=== PATIENT | female | born 1990 | race Caucasian/White ===

== ENCOUNTER 2017-10-09 14:02 | Emergency (ER) | payer MEDICAID ==
[~2017-10-09] VITALS: Ht 170.2 cm; Wt 71.2 kg
[~2017-10-09 14:02] MED LIST: BENADRYL25 M1 PO; CEPHALEXIN500 MG PO; KEFLEX 500MG.500 MG PO; MEDROL 4MG. DOSE4 MG PO; MOTRIN400 MG PO; NOMEDS *; PERCOCET 5/3251 EACH PO; PHENERGAN 25MG.25 MG PR; PROZAC 20MG CAP20 MG PO; ROBITUSSIN PO; SEPTRA DS 800 M1 TAB PO; SULFAMETHOXAZOL1 TA6 PO; TRAMADOL 50MG T50 M1 PO; TRAZODONE 50MG50 MG PO; VIBRAMYCIN 100100 MG PO; VICODIN 5/500 T1 TAB PO; ZANTAC 300300 MG PO; ZITHROMAX Z PA250 MG PO
--- OUTSIDE RECORDS SUMMARY | 2017-10-09 14:09 | External Medical Summary Rpt | CCD ---
Author Author , EUGENIA BELLO Address Unknown Phone [email or web address] Care Team Providers Care Vocational Examiner Name Role Phone LILIA ONEIDA, LILIA Unavailable Unavailable ONEIDA NIDHI ROBINS Unavailable Unavailable DA PRICILLA TERRELL, Unavailable Unavailable PRICILLA TERRELL [facility] [place]available [place], [facility]available Unavailable LAB, [facility] [place], [facility] [place] [facility] [place] [facility] [facility]ENOBIA GOVEA Unavailable Unavailable [facility] Unavailable Unavailable [facility], [facility] Unavailable Unavailable INC, [facility] Unavailable Unavailable HOSPITAL, [facility], Unavailable Unavailable [facility] Unavailable Unavailable [facility], [facility] Gay Montero MD, Unavailable Unavailable Gay Montero MD [facility] Unavailable Unavailable SERVICES, [facility], Unavailable Unavailable PLLC, [facility], [facility] Unavailable Unavailable LAB, [facility]Y [facility]TOLOGY LAB MANDI MANRIQUEZ, Unavailable Unavailable MANDI GARCIA, AKILA Unavailable Unavailable JOSE SCIFRES ANG, SCIFRES Unavailable Unavailable ANG SOKAN, TERI O, Unavailable Unavailable SOKAN, TERI O [facility] Un[facility]ILY [facility], [facility] Unavailable Unavailable [facility] [place], [facility] Purpose Continuity of Care Document - 07-19-2008 through 2016 Problems Code Diagnosis DOS Provider Status B19.20 UNSPECIFIED 08-16-2017 VIRAL HEPATITIS C WITHOUT HEPATIC COMA Z11.4 ENCOUNTER 08-16-2017 FOR SCREENING FOR HUMAN IMMUNODEFIC IENCY VIRUS [HIV] B1920 UNS VIRAL 08-15-2017 [facility] C GROUND WITHOUT FAMILY HEPATIC CLINI COMA R140 ABDOMINAL 08-15-2017 [facility] GROUND GASEOUS FAMILY CLINI R8299 OTHER 08-15-2017 [facility] ABNORMAL GROUND FINDINGS IN FAMILY URINE CLINI R768 OTH SPEC 07-18-2017 [facility] IMMUNOLOGIC INC AL FIND IN SERUM R7989 OTHER SPEC 07-10-2017 [facility] FINDINGS INC BLOOD CHEMISTRY R5383 OTHER 07-09-2017 [facility] FATIGUE [facility] INC F3289 OTHER 03-12-2017 [facility]IED [facility] DEPRESSIVE GROUP EPISODES J069 ACUTE UPPER 02-13-2017 [facility] RESPIRATORY INC INFECTION UNSPECIFIED Z720 TOBACCO USE 02-13-2017 [facility] INC K828 OTHER 10-01-2016 [facility] SPECIFIED [facility] DISEASES OF INC GALLBLADDER R1011 RIGHT UPPER 10-01-2016 [facility] R110 NAUSEA 10-01-2016 [facility] Z3201 ENCOUNTER 10-01-2016 [facility] FOR [facility] INC TEST RESULT POSITIVE R1013 EPIGASTRIC 08-29-2016 [facility] J029 ACUTE 08-02-2016 [facility] PH[facility]IT[facility]ANS GROUP UNSPECIFIED H6690 OTITIS 03-26-2016 [facility] UNSPECIFIED EAR Z0000 ENCOUNTER 03-26-2016 [facility] GEN ADULT [facility] MED EXAM INC W/O ABNORMAL FIND D179 BENIGN 03-07-2016 [facility] LIPOMATOUS [facility] NEOPLASM INC UNSPECIFIED R2242 LOCALIZED 03-07-2016 [place] [facility] LUMP LEFT LOWER LIMB K52286 ACUTE 02-21-2016 [facility], OM W/O PLLC RUPT EAR DRUM LT EAR V24494 REGULAR 12-09-2015 SCIFRES ANG ASTIGMATISM BILATERAL R109 UNSPECIFIED 10-20-2015 [facility]BDOMINAL [facility] PAIN INC R197 DIARRHEA 10-15-2015 [facility] UNSPECIFIED [facility] INC 305.1 305.1 05-05-2013 [place] TOBACCO USE [facility] DISORDER [facility] 599.0 599.0 URIN 05-05-2013 [place] TRACT [facility] INFECTION Hospital NOS 5990 URINARY 05-05-2013 ZEN[facility]IA LANDEN TRACT INFECTION SITE NOT SPECIFIED 1330 SCABIES 02-14-2013 ARNOLD ONEIDA 15935 ABDOMINAL 02-02-2013 AKILA JOSE PAIN, UNSPECIFIED SITE 61550 ABDOMINAL 02-02-2013 [facility] PAIN, [facility] GENERALIZED INC V7231 ROUTINE 09-08-2012 [facility] DECLAN AL EXAMINATION V745 SCREENING 09-08-2012 P[facility]LES[facility] EXAMINATION JR DECLAN FOR VENEREAL DISEASE 4660 ACUTE 09-01-2012 LILIA ONEIDA BRONCHITIS 462 ACUTE 02-22-2012 [facility] 4659 ACUTE URIS 12-10-2011 ARNREMY ONEIDA OF UNSPECIFIED SITE 66988 OTH ECTOPIC 11-05-2011 TERRELL DA PG WITHOUT INTRAUTERIN E PG 6160 CERVICITIS 11-04-2011 [facility] TIS 6202 OTHER AND 11-04-2011 [facility] UNSPECIFIED MEDICAL OVARIAN IMAGING ASS CYST 30793 TUBAL 11-04-2011 PATHOLOGY & CYTOLOGY WITHOUT LAB INTRAUTERIN E 74184 UNSPEC 11-04-2011 [facility] ECTOPIC PG EMERGENCY WITHOUT SERVICES INTRAUTERIN E PG 7821 RASH AND 10-30-2011 [facility] OTHER [facility] NONSPECIFIC INC SKIN ERUPTION 9221 CONTUSION 07-14-2011 [facility] OF CHEST [facility]OS[facility] WALL INC 27814 CONTUSION 07-14-2011 [facility] OF FOOT MEM HOS[facility] INC 9248 CONTUSION 07-14-2011 [facility] OF MULTIPLE EMERGENCY SITES NEC SERVICES 6823 CELLULITIS 08-29-2010 [facility] AND ABSCESS EMERGENCY OF UPPER SERVICES ARM AND FOREARM 79232 MATERNAL 07-05-2010 [facility] WITH [place] DELIVERY 650 NORMAL 07-05-2010 [facility] 99994 OLIGOHYDRAM 07-05-2010 [facility] HEALTH ANTEPARTUM CLINIC OF [place] V270 OUTCOME OF 07-05-2010 [facility] DELIVERY HEALTH SINGLE CLINIC OF LIVEBORN [place] 66897 MATERNAL RX 07-03-2010 [facility] DEPEND HEALTH COMPL PG CLINIC OF CB/PP UNS [place] EOC 10642 POOR 07-03-2010 [facility] GROWTH MGMT HEALTH MOTH CLINIC OF ANTPRLEWIS [place] COND/COMP V221 SUPERVISION 06-20-2010 [facility] OTHER PHYSICIANS NORMAL [place] V283 ENCOUNTER 03-02-2010 [facility] ROUTINE HEALTH SCREEN CLINIC OF MALFORMATIO DARRIUSANA N PLLC ULTRASONIC 59090 OTHER 01-12-2010 [facility] SPECIFED HEALTH COMPLICATIO CLINIC OF Adrian CAMACHO ANTEPARTUM PLLC V7242 12-06-2009 [facility] CO EXAMINATION HEALTH OR TEST CENTER POSITIVE RESULT 29836 ERLY ONSET 12-28-2008 [facility] W/WO CLINIC OF MENTION JANICE BLAKELYPRLEWIS [facility] COND 06767 OTH&UNS CRD 12-28-2008 [facility] W/O COMPRS CLINIC OF COMP L&D [facility] 81262 FIRST-DEGRE 12-28-2008 [facility] E PERINEAL [facility] LACERATION INC WITH DELIVERY V220 SUPERVISION 12-20-2008 [facility] NORMAL PHYSICIANS FIRST LAB V239 UNSPECIFIED 08-11-2008 [facility] ACCT 24227 MILD 07-19-2008 [facility] HYPEREMESIS [facility] GRAVIDARUM INC ANTEPARTUM 68185 VOMITING 07-19-2008 [facility] H66.90 OTITIS MEDIA, UNSPECIFIED , UNSPECIFIED EAR R10.9 UNSPECIFIED ABDOMINAL PAIN R11.0 NAUSEA Allergies, Adverse Reactions, Alerts Type Allergy to substance Adverse Reaction to Substance Substance Reaction Severity NO KNOWN ALLERGIES Unknown Unknown Medications Na ND Rx Da Fi Fi Am Da Di Ph RX Ph St me C No te ll ll ou ys ag ar # ys at rm s nt no ma ic us Or Da si cy ia de te s n re d NI 16 10 11 10 5 00 EA Ac TR 71 -0 -[address] ti OF 40 9- 3- 00 00 SI ve UR 43 20 20 50 DE AN 90 17 17 46 TO 1 61 PH IN AR MA MO CY NO -M OF CR CY NT 10 HI 0 AN MG A IN C HM 62 09 10 11 1 00 EA Ac 01 -2 -[address] ti LI 10 0- 3- 00 00 SI ve CE 11 20 20 0 50 DE 90 17 17 23 KI 2 69 PH LL AR IN MA G CY SH AM OF PO CY O NT HI AN A IN C FL 50 05 05 30 30 00 EA Ac UO 11 -0 -[address] ti XE 10 2- 6- 00 00 SI ve TI 64 20 20 48 DE NE 80 17 17 58 3 49 PH HC AR L MA 20 CY MG OF CY CA NT PS HI UL AN E A IN C AZ 64 04 05 6. 5 00 EA Ac IT 67 -0 -[address] ti HR 90 6- 5- 0 00 SI ve OM 96 20 20 48 DE YC 10 17 17 26 IN 5 52 PH AR 25 MA 0 CY MG OF TA CY BL NT ET HI AN A IN C ME 59 04 05 21 6 00 EA Ac TH 74 -0 -[address] ti YL 60 6- 5- 00 00 SI ve DC 00 20 20 48 DE ED 10 17 17 26 NI 3 53 PH SO AR LO MA NE CY 4 OF MG CY NT DO HI SE AN PK A IN C TR 50 03 04 30 15 00 EA Ac AZ 11 -2 -[address] ti OD 10 4- 1- 00 00 SI ve ON 43 20 20 46 DE E 30 17 17 99 50 2 37 PH AR MG MA CY TA BL OF ET CY NT HI AN A IN [facility] 00 02 03 30 30 00 EA Ac UO 78 -2 -[address] ti XE 12 2- 7- 00 00 SI ve TI 82 20 20 46 DE NE 21 17 17 99 0 33 PH HC AR L MA 20 CY MG OF CY CA NT PS HI UL AN E A IN C TR 50 02 03 30 15 00 EA Ac AZ 11 -2 -[address] ti OD 10 2- 7- 00 00 SI ve ON 43 20 20 46 DE E 30 17 17 99 50 2 37 PH AR MG MA CY TA BL OF ET CY NT HI AN A IN [facility] 00 02 30 30 00 EA Ac UO 78 -2 -[address] ti XE 12 3- 7- 00 00 SI ve TI 82 20 20 46 DE NE 21 17 17 99 0 33 PH HC AR L MA 20 CY MG OF CY CA NT PS HI UL AN E A IN TR 50 01 02 30 15 00 EA Ac AZ 11 -1 -[address] ti OD 10 6- 0- 00 00 SI ve ON 43 20 20 46 DE E 30 17 17 99 50 2 37 PH AR MG MA CY TA BL OF ET CY NT HI AN A IN [facility] 00 12 01 30 30 00 EA Ac UO 78 -2 -[address] ti XE 12 2- 0- 00 00 SI ve TI 82 20 20 46 DE NE 21 16 17 99 0 33 PH HC AR L MA 20 CY MG OF CY CA NT PS HI UL AN E A IN TR 50 12 01 30 15 00 EA Ac AZ 11 -2 -[address] ti OD 10 2- 0- 00 00 SI ve ON 43 20 20 46 DE E 30 16 17 99 50 2 37 PH AR MG MA CY TA BL OF ET CY NT HI AN A IN C 60 10 10 0 15 15 EA 19 RU Ac 95 -0 -[address] 45 SH ti 10 7- 7- 00 SI 14 ve 79 20 20 DE NE 67 10 10 [place] 0 PH C AR MA CY OF CY NT HI AN A AM 00 10 10 0 30 10 EA 19 RU Ac OX 78 -0 -[address] 45 SH ti IC 12 7- 7- 00 SI 15 ve IL 61 20 20 DE NE LI 30 10 10 IL N 5 PH C 50 AR 0 MA MG CY CA OF PS UL CY E NT HI AN A 00 10 10 0 15 4 EA 19 RU Ac 59 -0 -[address] 39 SH ti 10 4- 4- 00 SI 90 ve 34 20 20 DE NE 90 10 10 IL 1 PH C AR MA CY OF CY NT HI AN A IB 53 02 03 00 40 13 EA 11 CL Ac UP 74 -2 -[address] 59 AR ti RO 60 3- 2- 00 SI 93 KE ve FE 46 20 20 DE N 60 09 09 DE 80 5 PH RE 0 AR K MG MA J CY TA BL OF ET CY NT HI AN A 00 02 03 00 20 3 EA 11 CL Ac 59 -2 -[address] 59 AR ti 10 3- 2- 00 SI 92 KE ve 34 20 20 DE 90 09 09 DE 1 PH RE AR K MA J CY OF CY NT HI AN A 59 02 02 00 17 25 EA 11 CL Ac 36 -1 -[address] 50 AR ti 62 6- 6- 09 SI 47 KE ve 70 20 20 9 DE 40 09 09 DE 1 PH RE AR K MA J CY OF CY NT HI AN A FL 00 10 01 01 30 30 EA 99 CL Ac UO 78 -0 -[address] 68 AR ti XE 12 1- 0- 00 SI 83 KE ve TI 82 20 20 DE NE 30 08 09 DE 1 PH RE HC AR K L MA J 10 CY MG OF CY CA NT PS HI UL AN E A 60 01 01 00 12 6 EA 11 CL Ac 25 -1 -[address] 15 AR ti 80 9- 0- 00 SI 37 KE ve 23 20 20 0 DE 91 09 09 DE 6 PH RE AR K MA J CY OF CY NT HI AN A FL 00 10 11 00 30 30 EA 99 CL Ac UO 78 -0 -[address] 68 AR ti XE 12 1- 0- 00 SI 83 KE ve TI 82 20 20 DE NE 30 08 08 DE 1 PH RE HC AR K L MA J 10 CY MG OF CY CA NT PS HI UL AN E A 59 10 11 00 30 30 EA 99 CL Ac 63 -0 -[address] 68 AR ti 00 1- 0- 00 SI 84 KE ve 41 20 20 DE 43 08 08 DE 5 PH RE AR K MA J CY OF CY NT HI AN A 00 09 09 00 12 3 EA 99 No Ac 57 -0 -[address] 39 t ti 47 8- 6- 00 SI 94 Av ve 23 20 20 DE ai 41 08 08 la 2 PH bl AR e MA CY OF CY NT HI AN A 59 07 09 00 30 30 EA 98 No Ac 63 -3 -[address] 89 t ti 00 0- 1- 00 SI 96 Av ve 41 20 20 DE ai 43 08 08 la 5 PH bl AR e MA CY OF CY NT HI AN A DC 00 08 09 00 12 3 EA 99 No Ac OM 78 -2 -[address] 24 t ti ET 11 7- 1- 00 SI 24 Av ve DICKENS 83 20 20 DE ai ZI 01 08 08 la NE 0 PH bl AR e 25 MA CY MG OF TA CY BL NT ET HI AN A Vital Signs 02-02-2013 15:37 Name Value Interpretat Reference Comment ion Range Body 97.3 [degF] Temperature BP 69 mm[Hg] Diastolic BP Systolic 121 mm[Hg] Heart 100 /min Rate/Pulse O2% 99 % Respiratory 24 /min Rate 02-02-2013 14:40 Name Value Interpretat Reference Comment ion Range Body 97.3 [degF] Temperature BP 69 mm[Hg] Diastolic BP Systolic 121 mm[Hg] Heart 100 /min Rate/Pulse O2% 99 % Respiratory 24 /min Rate Results Labs Lab Lab Date Result Refere Interp Status Commen Order Detail nces retati t Range on SYPHILIS IGG TEST (EIA) (05-06-2014 09:40) Supervisor Cell Room: Maria Alejandra Escalante MD FCAP Lab: [facility] Division of Laboratory Services Lab Address: [address] [place] [address], [address] [place] [address] 05-06-2014 9:40 am Specimen Collection Start Date/Time: Etl Developer: Specimen Rcv'd 05-12-2014 8:56 am Date/Time: Ordering Physician: KY BRIDGETTE (KCIW) 05-12-2014 2:07 pm Results Rpt/Status Change Date/Time: This report contains patient information that must be protected in accordance with the Health Insurance Portability and Accountability Act. COLLECT JF complet OR 014 ed 09:40 ETHNICI C complet TY 014 ed 09:40 PURPOSE ROUTINE complet OF 014 ed EXAM 09:40 SPECIME BLOOD complet N 014 ed SOURCE 09:40 CHART [id number] complet NUMBER 014 ed 09:40 SYPHILI NON-TRESA complet S IGG 014 CTIVE ed TEST 09:40 (EIA) Comment: METHOD OF ANALYSIS: EIA Comment: NORMAL RANGE: NON-REACTIVE Comment: \E\.br\E\This report contains patient information that must be protected in accordance with the Health Insurance Portability and Accountability Act. Treponema pallidum IgG Ab [Presence] in Serum by Immunoassay (05-06-2014 09:40) Trepone NON-TRESA complet ma 014 CTIVE ed pallidu 09:40 m IgG Ab [Presen ce] in Serum by Immunoa ssay Treponema pallidum IgG Ab [Presence] in Serum by Immunoassay (05-06-2014 09:40) COLLECT JF complet OR 014 ed 09:40 ETHNICI C complet TY 014 ed 09:40 PURPOSE ROUTINE complet OF 014 ed EXAM 09:40 SPECIME BLOOD complet N 014 ed SOURCE 09:40 CHART [id number] complet NUMBER 014 ed 09:40 Trepone Pending complet ma 014 ed pallidu 09:40 m IgG Ab [Presen ce] in Serum by Immunoa ssay B-HCG Ur Ql (05-05-2013 19:48) B-HCG NEGATIV NEG complet Ur Ql 013 E ed 19:48 URINALYSIS/COMPLETE (05-05-2013 19:48) URINE YELLOW YELLOW complet COLOR 013 ed 19:48 URINE Cloudy CLEAR complet APPEARA 013 ed NCE 19:48 URINE 06-25-2 NEGATIV NEG complet GLUCOSE 013 E ed - 19:48 DIPSTIC K URINE 06-25-2 NEGATIV NEG complet BILIRUB 013 E ed IN - 19:48 DIPSTIC K URINE 06-25-2 NEGATIV NEG complet KETONE 013 E mg/dL ed 19:48 URINE 06-25-2 1.015 1.005-1 complet SPECIFI 013 UNK .030 ed C 19:48 GRAVITY URINE 06-25-2 NEGATIV NEG complet BLOOD 013 E ed 19:48 URINE 06-25-2 7.5 UNK 5.0-8.5 complet PH 013 ed 19:48 URINE 06-25-2 NEGATIV NEG complet PROTEIN 013 E mg/dL ed - 19:48 DIPSTIC K URINE 06-25-2 0.2 NEG complet UROBILI 013 E.U./dL ed NOGEN - 19:48 DIPSTIC K URINE 06-25-2 NEGATIV NEG complet NITRATE 013 E ed - 19:48 DIPSTIC K URINE 06-25-2 2+ NEG complet LEUK 013 ed ESTERAS 19:48 E URINE 06-25-2 20-50 O complet WBC 013 wbc/hpf ed 19:48 URINE 06-25-2 50-100 0-5 complet SQUAMOU 013 #/hpf ed S CELLS 19:48 URINE 06-25-2 1+ O complet BACTERI 013 ed A 19:48 B-HCG Ur Ql (02-02-2013 13:50) B-HCG 03-25-2 NEGATIV NEG complet Ur Ql 013 E ed 13:50 URINALYSIS/COMPLETE (02-02-2013 13:50) URINE 03-25-2 YELLOW YELLOW complet COLOR 013 ed 13:50 URINE 03-25-2 Sl CLEAR complet APPEARA 013 Cloudy ed NCE 13:50 URINE 03-25-2 NEGATIV NEG complet GLUCOSE 013 E ed - 13:50 DIPSTIC K URINE 03-25-2 NEGATIV NEG complet BILIRUB 013 E ed IN - 13:50 DIPSTIC K URINE 03-25-2 NEGATIV NEG complet KETONE 013 E mg/dL ed 13:50 URINE 03-25-2 1.025 1.005-1 complet SPECIFI 013 UNK .030 ed C 13:50 GRAVITY URINE 03-25-2 NEGATIV NEG complet BLOOD 013 E ed 13:50 URINE 03-25-2 6.0 UNK 5.0-8.5 complet PH 013 ed 13:50 URINE NEGATIV NEG complet PROTEIN 013 E mg/dL ed - 13:50 DIPSTIC K URINE 0.2 NEG complet UROBILI 013 E.U./dL ed NOGEN - 13:50 DIPSTIC K URINE NEGATIV NEG complet NITRATE 013 E ed - 13:50 DIPSTIC K URINE 1+ NEG complet LEUK 013 ed ESTERAS 13:50 E Procedures Procedure DOS Code Location [place] [facility] [place] OTHER 9 [facility] OBSTETRIC LACERATIO N Encounters Encounter Start End Date Code Location Performer Type Date [facility] - 7 7 [facility] - 7 7 [facility] - 7 7 [facility] 7 [facility] - 6 6 [facility] - 6 6 [facility] - 6 6 [facility] 6 6 [facility] KAYDEN Montero MD (ER) 3 19:35 3 21:08 [facility] Emergency KAYDEN Womack (ER) 3 13:10 3 15:37 [facility] - 3 3 [facility] 2 [facility] - 1 1 [facility] 1 [facility] 1 [facility] 0 0 [facility] 0 0 [facility] - 9 9 [facility] - 8 8 [facility]
--- OUTSIDE RECORDS SUMMARY | 2017-10-09 14:09 | External Medical Summary Rpt | CCD ---
Author Author , EUGENIA BELLO Address Unknown Phone [email or web address] Care Team Providers Care Mold Swabber Name Role Phone LILIA ONEIDA, LILIA Unavailable Unavailable ONEIDA NIDHI ROBINS Unavailable Unavailable DA PRICILLA TERRELL, Unavailable Unavailable PRICILLA TERRELL [facility] [place]available [place], [facility] [place] [facility] Unavailable Unavailable LAB, [facility] [place], [facility] [place] [facility] [place] [facility] ZENOBIA GOVEA Unavailable Unavailable [facility] Unavailable Unavailable CENTER, [facility] Unavailable Unavailable INC, [facility] Unavailable Unavailable HOSPITAL, [facility], Unavailable Unavailable [facility] Unavailable Unavailable [facility], [facility] Gay Montero MD, Unavailable Unavailable Gay Montero MD [facility] Unavailable Unavailable SERVICES, [facility], Unavailable Unavailable PLLC, [facility], [facility] Unavailable Unavailable LAB, [facility] LAB MANDI MANRIQUEZ, Unavailable Unavailable MANDI GARCIA, AKILA Unavailable Unavailable JOSE SCIFRES ANG, SCIFRES Unavailable Unavailable ANG SOKAN, TERI O, Unavailable Unavailable SOKAN, TERI O [facility] Unavailable Unavailable FAMILY [facility]IN[facility], [facility] Unavailable Unavailable OF [facility], [facility] [...] [facility] F3289 OTHER 03-12-2017 [facility] SPECIFIED PHYSICIANS DEPRESSIVE GROUP EPISODES J069 ACUTE UPPER 02-13-2017 [facility] RESPIRATORY INC INFECTION UNSPECIFIED Z720 TOBACCO USE 02-13-2017 [facility] K828 OTHER 10-01-2016 [facility] SPECIFIED [facility] DISEASES OF INC GALLBLADDER R1011 RIGHT UPPER 10-01-2016 [place] [facility] R110 NAUSEA 10-01-2016 [facility] Z3201 ENCOUNTER 10-01-2016 [facility] FOR [facility] TEST RESULT POSITIVE R1013 EPIGASTRIC 08-29-2016 [place] [facility] J029 ACUTE 08-02-2016 [facility] PHARYNGITIS PHYSICIANS GROUP UNSPECIFIED H6690 OTITIS 03-26-2016 [facility] UNSPECIFIED EAR Z0000 ENCOUNTER 03-26-2016 [facility] GEN ADULT [facility] MED EXAM INC W/O ABNORMAL FIND D179 BENIGN 03-07-2016 [facility] LIPOMATOUS [facility] NEOPLASM INC UNSPECIFIED R2242 LOCALIZED 03-07-2016 [place] SWELL[facility] MASS AND IMAGING ASS LUMP LEFT LOWER LIMB Y04515 ACUTE 02-21-2016 [facility], OM W/O PLLC RUPT EAR DRUM LT EAR L21776 REGULAR 12-09-2015 SCIFRES ANG ASTIGMATISM BILATERAL R109 UNSPECIFIED 10-20-2015 [facility] ABDOMINAL [facility] PAIN INC R197 DIARRHEA 10-15-2015 [facility] UNSPECIFIED [facility] H[facility]P INC 305.1 305.1 05-05-2013 [place] TOBACCO USE [facility] DISORDER [facility] 599.0 599.0 URIN 05-05-2013 [place] TRACT [facility] INFECTION Hospital NOS 5990 URINARY 05-05-2013 ZENOBIA LANDEN TRACT INFECTION SITE NOT SPECIFIED 1330 SCABIES 02-14-2013 ARNOLD ONEIDA 54440 ABDOMINAL 02-02-2013 AKILA JOSE PAIN, UNSPECIFIED SITE 17500 ABDOMINAL 02-02-2013 [facility] PAIN, MEM [facility] GENERALIZED INC V7231 ROUTINE 09-08-2012 [facility] JR DECLAN AL EXAMINATION V745 SCREENING 09-08-2012 P[facility] EXAMINATION JR DECLAN FOR VENEREAL DISEASE 4660 ACUTE 09-01-2012 LILIA ONEIDA BRONCHITIS 462 ACUTE 02-22-2012 [facility] PHARYNGIT[facility]ERGENCY SERVICES 4659 ACUTE URIS 12-10-2011 ARNREMY ONEIDA OF UNSPECIFIED SITE 80027 OTH ECTOPIC 11-05-2011 TERRELL DA PG WITHOUT INTRAUTERIN E PG 6160 CERVICITIS 11-04-2011 [facility] TIS 6202 OTHER AND 11-04-2011 [facility] UNSPECIFIED MEDICAL OVARIAN IMAGING ASS CYST 07256 TUBAL 11-04-2011 PATHOLOGY & CYTOLOGY WITHOUT LAB INTRAUTERIN E 30243 UNSPEC 11-04-2011 [facility] ECTOPIC PG EMERGENCY WITHOUT SERVICES INTRAUTERIN E PG 7821 RASH AND 10-30-2011 [facility] OTHER MEM HOS[facility] NONSPECIFIC INC SKIN ERUPTION 9221 CONTUSION 07-14-2011 [facility] OF CHEST [facility] HOS[facility] WALL INC 35124 CONTUSION 07-14-2011 [facility] OF FOOT [facility] HOS[facility] INC 9248 CONTUSION 07-14-2011 [facility] OF MULTIPLE EMERGENCY SITES NEC SERVICES 6823 CELLULITIS 08-29-2010 [facility] AND ABSCESS EMERGENCY OF UPPER SERVICES ARM AND FOREARM 52062 MATERNAL 07-05-2010 [facility] OF WITH JOE DELIVERY 650 NORMAL 07-05-2010 [facility] DELIVERY HEALTH CLINIC OF JOE 26909 OLIGOHYDRAM 07-05-2010 [facility], HEALTH ANTEPARTUM CLINIC OF JOE V270 OUTCOME OF 07-05-2010 [facility]EN'[facility] DELIVERY HEALTH SINGLE CLINIC OF LIVEBORN JOE 22347 MATERNAL RX 07-03-2010 WOMEN'S DEPEND HEALTH COMPL PG CLINIC OF CB/PP UNS JOE EOC 03691 POOR 07-03-2010 [facility]'S GROWTH MGMT HEALTH MOTH CLINIC OF ANTPRLEWIS JOE COND/COMP V221 SUPERVISION 06-20-2010 COM[facility] OF OTHER PHYSICIANS NORMAL [place] V283 ENCOUNTER 03-02-2010 WOMEN'S ROUTINE HEALTH SCREEN CLINIC OF MALFORMATIO [place] N PLLC ULTRASONIC 67473 OTHER 01-12-2010 WOMEN'S SPECIFED HEALTH COMPLICATIO CLINIC OF Adrian CAMACHO ANTEPARTUM PLLC V7242 12-06-2009 [facility] CO EXAMINATION HEALTH OR TEST CENTER POSITIVE RESULT 47852 ERLY ONSET 12-28-2008 [facility] W/WO CLINIC OF MENTION JANICE BLAKELYPRLEWIS [facility] COND 54080 OTH&UNS CRD 12-28-2008 [facility] OF COMP L&D [facility] 54951 FIRST-DEGRE 12-28-2008 [facility] E PERINEAL MEM HOSP LACERATION INC WITH DELIVERY V220 SUPERVISION 12-20-2008 COM[facility]ED OF NORMAL PHYSICIANS FIRST LAB V239 UNSPECIFIED 08-11-2008 [facility] B[facility] ACCT 60638 MILD 07-19-2008 [facility] HYPEREMESIS MEM HOS[facility] GRAVIDARUM INC ANTEPARTUM 83508 VOMITING 07-19-2008 [email or web address]. H66.90 OTITIS MEDIA, UNSPECIFIED , UNSPECIFIED EAR [...] 60 6- 5- 00 00 SI ve VA 00 20 20 48 DE ED 10 [...] ET CY NT HI AN A IN [facility] 00 02 03 30 30 00 EA [...] ET CY NT HI AN A IN [facility] 00 02 30 30 00 EA Ac [...] ET CY NT HI AN A IN [facility] 00 12 01 30 30 00 EA [...] CY OF CY NT HI AN A VA 00 08 09 00 12 3 EA [...] on SYPHILIS IGG TEST (EIA) (05-06-2014 09:40) [employer] Analyst: Maria Alejandra Escalante MD FCAP Lab: [facility] Division of Laboratory Services Lab Address: [address] [place] [address], [address] [place] [address] 05-06-2014 9:40 am Specimen Collection Start Date/Time: Hose Wrapper: Specimen Rcv'd 05-12-2014 8:56 am Date/Time: Ordering [...] complet N 014 ed SOURCE 09:40 CHART [id number] complet NUMBER 014 ed 09:40 SYPHILI NON-TRESA [...] complet N 014 ed SOURCE 09:40 CHART [id number] complet NUMBER 014 ed 09:40 Trepone Pending [...] REPAIR OF 7569 [facility] ESP[place] OTHER 9 [facility] OBSTETRIC LACERATIO N Encounters Encounter Start End Date Code Location Performer Type Date [facility] OL[facility] - 7 7 [facility] OLGA - 7 7 [facility] OLGA - 7 7 [facility] OLGA - 7 7 [facility] OLGA - 6 6 [facility] OLGA - 6 6 [facility] OLGA - 6 6 [facility] OL[facility] - 6 6 [facility] - 6 6 [facility] - 5 5 [facility] - 5 5 [facility] KAYDEN Montero MD (ER) 3 19:35 3 21:08 [facility] Emergency KAYDEN Womack (ER) 3 13:10 3 15:37 [facility] OLGA - 3 3 [facility] - 2 2 [facility] OL[facility] - 1 1 [facility] - 1 1 [facility] - 1 1 [facility] - 0 0 [facility] OLGA - 0 0 [facility] OL[facility] - 9 9 [facility] OL[facility] - 8 8 [facility]
--- OUTSIDE RECORDS SUMMARY | 2017-10-09 14:11 | External Medical Summary Rpt | CCD ---
Author Author , EUGENIA MORRELLTELLY Address Unknown Phone [email or web address] Care Team Providers Care Assistant Paralegal Name Role Phone LILIA ONEIDA, LILIA Unavailable Unavailable ONEIDA NIDHI ROBERSON, NIDHI Unavailable Unavailable DA PRICILLA TERRELL, Unavailable Unavailable PRICILLA TERRELL [facility] Unavailable [place]available [place], [facility] [place] [facility] Unavailable Unavailable LAB, [facility] OF [place] Un[place], [facility] [place] [facility] [facility], [facility] [place] ZENOBIA LANDEN, ZENOBIA Unavailable Unavailable [facility] Unavailable Unavailable CENTER, [facility] Unavailable Unavailable INC, [facility] Unavailable [facility]available HOSPITAL, [facility], [facility]available [facility]available [facility] Un[facility], [facility] Unavailable Unavailable SERVICES, [facility], Unavailable Unavailable PLLC, [facility]OLOGY [facility] CYTOLOGY Unavailable Unavailable LAB, PATHOLOGY & CYTOLOGY LAB MANDI MANRIQUEZ, Unavailable Unavailable MANDI GARCIA, AKILA Unavailable Unavailable JOSE SCIFRES ANG, SCIFRES Unavailable Unavailable ANG SOKAN, TERI O, Unavailable Unavailable SOKAN, TERI O [facility] Unavailable Unavailable FAMILY CLINI, [facility] Unavailable Unavailable OF [place], [facility] [place] Purpose Continuity of Care Document - 07-19-2008 through 2016 Problems Code Diagnosis DOS Provider Status B1920 UNS VIRAL 08-15-2017 [facility] [...] [facility] F3289 OTHER 03-12-2017 [facility] SPECIFIED PHYSICIANS DEPRESSIVE GROUP EPISODES J069 ACUTE UPPER 02-13-2017 [facility] RESPIRATORY INC INFECTION UNSPECIFIED Z720 TOBACCO USE 02-13-2017 [facility] K828 OTHER 10-01-2016 [facility] SPECIFIED [facility] DISEASES OF INC GALLBLADDER R1011 RIGHT UPPER 10-01-2016 [place] [facility] R110 NAUSEA 10-01-2016 [facility] Z3201 ENCOUNTER 10-01-2016 [facility] FOR [facility] INC TEST RESULT POSITIVE R1013 EPIGASTRIC 08-29-2016 [place] [facility] J029 ACUTE 08-02-2016 [facility] PHARYNGITIS PHYSICIANS GROUP UNSPECIFIED H6690 OTITIS 03-26-2016 [facility] UNSPECIFIED EAR Z0000 ENCOUNTER 03-26-2016 [facility] GEN ADULT [facility] MED EXAM INC W/O ABNORMAL FIND D179 BENIGN 03-07-2016 [facility] LIPOMATOUS [facility] NEOPLASM INC UNSPECIFIED R2242 LOCALIZED 03-07-2016 [place] [facility] IMAGING ASS LUMP LEFT LOWER LIMB R39344 ACUTE 02-21-2016 [facility] SUPPURATIVE PHYSICIANS, OM W/O PLLC RUPT EAR DRUM LT EAR J44043 REGULAR 12-09-2015 SCIFRES ANG ASTIGMATISM BILATERAL R109 UNSPECIFIED 10-20-2015 [facility]BDOMINAL [facility] PAIN INC R197 DIARRHEA 10-15-2015 [facility] UNSPECIFIED [facility] INC 5990 URINARY 05-05-2013 ZENOBIA LANDEN TRACT INFECTION SITE NOT SPECIFIED 1330 SCABIES 02-14-2013 ARNOLD ONEIDA 54667 ABDOMINAL 02-02-2013 AKILA JOSE PAIN, UNSPECIFIED SITE 56748 ABDOMINAL 02-02-2013 [facility] PAIN, MEM [facility]OS[facility] GENERALIZED INC V7231 ROUTINE 09-08-2012 [facility] JR DECLAN AL EXAMINATION V745 SCREENING 09-08-2012 [facility] EXAMINATION JR DECLAN FOR VENEREAL DISEASE 4660 ACUTE 09-01-2012 ARNOLD ONEIDA BRONCHITIS 462 ACUTE 02-22-2012 [facility] 4659 ACUTE URIS 12-10-2011 ARNOLD ONEIDA OF UNSPECIFIED SITE 27971 OTH ECTOPIC 11-05-2011 TERRELL DA PG WITHOUT INTRAUTERIN E PG 6160 CERVICITIS 11-04-2011 [place] AND [facility] ENDOCERVICI IMAGING ASS TIS 6202 OTHER AND 11-04-2011 [place] UNSPECIFIED MEDICAL OVARIAN IMAGING ASS CYST 29963 TUBAL 11-04-2011 PATHOLOGY & CYTOLOGY WITHOUT LAB INTRAUTERIN E 38578 UNSPEC 11-04-2011 [facility] ECTOPIC PG EMERGENCY WITHOUT SERVICES INTRAUTERIN E PG 7821 RASH AND 10-30-2011 [facility] OTHER [facility] NONSPECIFIC INC SKIN ERUPTION 9221 CONTUSION 07-14-2011 [facility] OF CHEST MEM HOS[facility] WALL INC 43212 CONTUSION 07-14-2011 [facility] OF FOOT [facility] HOS[facility] INC 9248 CONTUSION 07-14-2011 [facility] OF MULTIPLE EMERGENCY SITES NEC SERVICES 6823 CELLULITIS 08-29-2010 [facility] AND ABSCESS EMERGENCY OF UPPER SERVICES ARM AND FOREARM 32445 MATERNAL 07-05-2010 [facility] DEPENDENCE [facility]IN[facility] OF WITH [facility]E DELIVERY 650 NORMAL 07-05-2010 WOMEN'S DELIVERY HEALTH CLINIC OF JOE 26483 OLIGOHYDRAM 07-05-2010 WOMEN'S OS, HEALTH ANTEPARTUM CLINIC OF JOE V270 OUTCOME OF 07-05-2010 WOMEN'S DELIVERY HEALTH SINGLE CLINIC OF LIVEBORN JO[place] 88070 MATERNAL RX 07-03-2010 WOMEN'S DEPEND HEALTH COMPL PG CLINIC OF CB/PP UNS [place] EOC 15798 POOR 07-03-2010 WOMEN'S GROWTH MGMT HEALTH MOTH CLINIC OF ANTPRTM JOE COND/COMP V221 SUPERVISION 06-20-2010 COMBIN[facility] OF OTHER PHYSICIANS NORMAL [place] V283 ENCOUNTER 03-02-2010 WOMEN'S ROUTINE HEALTH SCREEN CLINIC OF MALFORMATIO [place] N PLLC ULTRASONIC 14653 OTHER 01-12-2010 WOMEN'S SPECIFED HEALTH COMPLICATIO CLINIC OF N [place] ANTEPARTUM PLLC V7242 12-06-2009 [facility] CO EXAMINATION HEALTH OR TEST CENTER POSITIVE RESULT 65668 ERLY ONSET 12-28-2008 [facility] HEALTH W/WO CLINIC OF MENTION [place] ANTPRTM PLLC COND 26966 OTH&UNS CRD 12-28-2008 [facility]'S [facility] W/O COMPRS CLINIC OF COMP L&D [facility] 83592 FIRST-DEGRE 12-28-2008 [facility] E PERINEAL MEM HOS[facility] LACERATION INC WITH DELIVERY V220 SUPERVISION 12-20-2008 COMBINED OF NORMAL PHYSICIANS FIRST LAB V239 UNSPECIFIED 08-11-2008 [facility] C[facility]TRAL B[facility] ACCT 24096 MILD 07-19-2008 [facility] HYPEREMESIS [facility]OS[facility] GRAVIDARUM INC ANTEPARTUM 55566 VOMITING 07-19-2008 [facility] Medications Na ND Rx Da Fi Fi [...] 60 6- 5- 00 00 SI ve WV 00 20 20 48 DE ED 10 [...] CY NT HI AN A IN C FL 00 02 03 30 30 00 EA [...] CY NT HI AN A IN C FL 00 01 02 30 30 00 EA Ac UO 78 -2 -[address] ti XE 12 3- 7- 00 00 SI ve TI 82 20 20 46 DE NE 21 17 17 99 0 33 PH HC AR L MA 20 CY MG OF CY CA NT PS HI UL AN E A IN C TR 50 01 02 30 15 00 EA Ac AZ 11 -1 -[address] ti OD 10 6- 0- 00 00 SI ve ON 43 20 20 46 DE E 30 17 17 99 50 2 37 PH AR MG MA CY TA BL OF ET CY NT HI AN A IN C FL 00 12 01 30 30 00 EA Ac UO 78 -2 -[address] ti XE 12 2- 0- 00 00 SI ve TI 82 20 20 46 DE NE 21 16 17 99 0 33 PH HC AR L MA 20 CY MG OF CY CA NT PS HI UL AN E A IN C TR 50 12 01 30 15 00 [...] CY OF CY NT HI AN A 60 01 01 00 12 6 [...] NT PS HI UL AN E A 00 09 09 00 12 3 [...] CY OF CY NT HI AN A WV 00 08 12 3 EA 99 No Ac OM 78 -2 -[address] 24 t ti ET 11 7 SI 24 Av ve DICKENS 83 20 20 DE ai ZI 01 08 08 la NE 0 PH bl AR e 25 MA CY MG OF TA CY BL NT ET HI AN A Procedures Procedure DOS Code Location Performer Comment REPAIR OF 7569 [facility] OTHER [address] [facility] OBSTETRIC LACERATIO N Encounters Encounter Start End Date Code Location Performer Type Date [facility] OL[facility] - 7 7 [facility] OLGA - 7 7 [facility] OLGA - 7 7 [facility] - 7 7 [facility] - 6 6 [facility] - 6 6 [facility] - 6 6 [facility] - 6 6 [facility] - 6 6 [facility] - 6 6 [facility] - 5 5 [facility] - 5 5 [facility] - 3 3 [facility] - 2 2 [facility] - 1 1 [facility] - 1 1 [facility] - 1 1 [facility] - 0 0 [facility] OL[facility] - 9 9 [facility]
--- OUTSIDE RECORDS SUMMARY | 2017-10-09 14:11 | External Medical Summary Rpt | CCD ---
Author Author , EUGENIA Organization EUGENIA Address Unknown Phone [email or web address] Immunization Name Date Rout CVX Reac Dose Comm Prov Is Faci e tion ent ider Refu lity Give sed n HPV4 08-1 62 999 Hist H149 No H149 6-20 oric (Gar 07 al dasi Info l) rmat ion - Sour ce Unsp ecif ied Tdap 08-3 115 999 Hist H149 No H149 , 1-20 oric Adso 06 al rbed Info rmat ion - Sour ce Unsp ecif ied MMR 08-0 3 999 Hist H149 No H149 8-20 oric 02 al Info rmat ion - Sour ce Unsp ecif ied Hep 08-0 8 999 Hist H149 No H149 B, 8-20 oric ped/ 02 al adol Info rmat ion - Sour ce Unsp ecif ied
--- OUTSIDE RECORDS SUMMARY | 2017-10-09 14:11 | External Medical Summary Rpt | CCD ---
Author Author , EUGENIA Organization EUGENIA Address Unknown Phone [email or web address] Immunization Name Date Rout CVX Reac Dose [...]
--- OUTSIDE RECORDS SUMMARY | 2017-10-09 14:11 | External Medical Summary Rpt | CCD ---
Author Author , EUGENIA MORRELLTELLY Address Unknown Phone [email or web address] Care Team Providers Care Clothes Drier Repairer Name Role Phone LILIA ONEIDA, LILIA Unavailable Unavailable ONEIDA NIDHI ROBERSON, NIDHI Unavailable Unavailable DA PRICILLA TERRELL, Unavailable Unavailable PRICILLA TERRELL [facility] Un[facility] [place]available [place], [facility] Unavailable Unavailable LAB, [facility] [place] [facility] [place] [facility] [place] [facility] [facility] ZENOBIA LANDEN, ZENOBIA Unavailable Unavailable [facility]ANDEN [facility] Unavailable Unavailable CENTER, [facility] Unavailable Unavailable INC, [facility] Unavailable Unavailable HOSPITAL, [facility], Unavailable [facility]available [facility], [facility] Unavailable Unavailable SERVICES, [facility], Unavailable Unavailable [facility], [facility] Unavailable Unavailable LAB, [facility] MANDI MANRIQUEZ, Unavailable Unavailable MANDI GARCIA, AKILA Unavailable Unavailable JOSE SCIFRES ANG, SCIFRES Unavailable Unavailable ANG SOKAN, TERI O, Unavailable Unavailable SOKAN, TERI O [facility], [facility] Unavailable Unavailable OF [facility], [facility] Purpose Continuity of [...] [facility] F3289 OTHER 03-12-2017 [facility] SPECIFIED PHYSICIANS DEPRESSIVE GROUP EPISODES J069 ACUTE UPPER 02-13-2017 [facility]PIR[facility] INFECTION UNSPECIFIED Z720 TOBACCO USE 02-13-2017 [facility] K828 OTHER 10-01-2016 [facility] SPECIFIED [facility] DISEASES OF INC GALLBLADDER R1011 RIGHT UPPER 10-01-2016 [facility] R110 NAUSEA 10-01-2016 [facility] Z3201 ENCOUNTER 10-01-2016 [facility] FOR [facility] TEST RESULT POSITIVE R1013 EPIGASTRIC 08-29-2016 [facility] [facility] J029 ACUTE 08-02-2016 [facility] PHARYNGITIS PHYSICIANS GROUP UNSPECIFIED H6690 OTITIS 03-26-2016 [facility] UNSPECIFIED EAR Z0000 ENCOUNTER 03-26-2016 [facility] GEN ADULT [facility] MED EXAM INC W/O ABNORMAL FIND D179 BENIGN 03-07-2016 [facility] LIPOMATOUS [facility] NEOPLASM INC UNSPECIFIED R2242 LOCALIZED 03-07-2016 [place] [facility] LUMP LEFT LOWER LIMB Q97393 ACUTE 02-21-2016 [facility], OM W/O PLLC RUPT EAR DRUM LT EAR C46588 REGULAR 12-09-2015 [facility]IF[facility] ANG ASTIGMATISM BILATERAL R109 UNSPECIFIED 10-20-2015 [facility] ABDOMINAL [facility] PAIN INC R197 DIARRHEA 10-15-2015 [facility] UNSPECIFIED [facility] INC 5990 URINARY 05-05-2013 ZENOBIA LANDEN TRACT INFECTION SITE NOT SPECIFIED 1330 SCABIES 02-14-2013 ARNOLD ONEIDA 70256 ABDOMINAL 02-02-2013 AKILA JOSE PAIN, UNSPECIFIED SITE 19438 ABDOMINAL 02-02-2013 [facility] PAIN, [facility] GENERALIZED INC V7231 ROUTINE 09-08-2012 [facility] DECLAN AL EXAMINATION V745 SCREENING 09-08-2012 [facility] EX[facility] JR DECLAN FOR VENEREAL DISEASE 4660 ACUTE 09-01-2012 ARNOLD ONEIDA BRONCHITIS 462 ACUTE 02-22-2012 [facility] 4659 ACUTE URIS 12-10-2011 ARNOLD ONEIDA OF UNSPECIFIED SITE 89407 OTH ECTOPIC 11-05-2011 TERRELL DA PG WITHOUT INTRAUTERIN E PG 6160 CERVICITIS 11-04-2011 [place] [facility] ENDOCERVICI IM[facility]ING [facility] TIS 6202 OTHER AND 11-04-2011 [place] UNSPECIFIED MEDICAL OVARIAN IMAGING ASS CYST 44641 TUBAL 11-04-2011 PATHOLOGY & CYTOLOGY WITHOUT LAB INTRAUTERIN E 93659 UNSPEC 11-04-2011 [facility] ECTOPIC PG EMERGENCY WITHOUT SERVICES INTRAUTERIN E PG 7821 RASH AND 10-30-2011 [facility] OTHER [facility]OS[facility] NONSPECIFIC INC SKIN ERUPTION 9221 CONTUSION 07-14-2011 [facility] OF CHEST [facility] HOS[facility] WALL INC 95204 CONTUSION 07-14-2011 [facility] OF FOOT [facility]OS[facility] INC 9248 CONTUSION 07-14-2011 [facility] OF MULTIPLE EMERGENCY SITES NEC SERVICES 6823 CELLULITIS 08-29-2010 [facility] AND ABSCESS EMERGENCY OF UPPER SERVICES ARM AND FOREARM 04694 MATERNAL 07-05-2010 [facility] WITH [facility] DELIVERY 650 NORMAL 07-05-2010 [facility] CLINIC OF [facility] 29976 OLIGOHYDRAM 07-05-2010 [facility] OS, HEALTH ANTEPARTUM CLINIC OF [facility] V270 OUTCOME OF 07-05-2010 [facility] DELIVERY HEALTH SINGLE CLINIC OF LIVEBORN [place] 80575 MATERNAL RX 07-03-2010 [facility] DEPEND HEALTH COMPL PG CLINIC OF CB/PP UNS [place] EOC 62275 POOR 07-03-2010 [facility] GROWTH MGMT HEALTH MOTH CLINIC OF ANTPRTM [place] COND/COMP V221 SUPERVISION 06-20-2010 [facility] OTHER PHYSICIANS NORMAL [place] V283 ENCOUNTER 03-02-2010 [facility] ROUTINE HEALTH SCREEN CLINIC OF MALFORMATIO [place] N PLLC ULTRASONIC 98430 OTHER 01-12-2010 [facility] SPECIFED HEALTH COMPLICATIO CLINIC OF N [place] ANTEPARTUM PLLC V7242 12-06-2009 [facility] CO EXAMINATION HEALTH OR TEST CENTER POSITIVE RESULT 44263 ERLY ONSET 12-28-2008 [facility] HEALTH W/WO CLINIC OF MENTION [place] ANTPRTM PLLC COND 24209 OTH&UNS CRD 12-28-2008 [facility] HEALTH W/O COMPRS CLINIC OF COMP L&D [facility] 55066 FIRST-DEGRE 12-28-2008 [facility] E PERINEAL [facility] LACERATION INC WITH DELIVERY V220 SUPERVISION 12-20-2008 [facility] NORMAL PHYSICIANS FIRST LAB V239 UNSPECIFIED 08-11-2008 [facility] ACCT 59263 MILD 07-19-2008 [facility] HYPEREMESIS [facility]OS[facility] GRAVIDARUM INC ANTEPARTUM 73925 VOMITING 07-19-2008 [facility] Medications Na ND Rx Da Fi Fi [...] 60 6- 5- 00 00 SI ve MS 00 20 20 48 DE ED 10 [...] CY OF CY NT HI AN A MS 00 08 12 3 EA 99 No [...] REPAIR OF 7569 [facility] OTHER 9 [facility] OBSTETRIC LACERATIO N Encounters Encounter Start End Date Code Location Performer Type Date [facility] - 7 7 [facility] - 7 7 [facility] - 7 7 [facility] - 7 7 [facility] - 6 6 [facility] - 6 6 [facility] - 6 6 [facility] - 6 6 [facility] - 6 6 [facility] - 6 6 [facility] - 5 5 [facility] - 5 5 [facility] - 3 3 [facility] - 2 2 [facility] - 1 1 [facility] - 1 1 [facility] - 1 1 [facility] 0 [facility] - 0 0 [facility] - 9 9 [facility] - 8 8 [facility]
--- OUTSIDE RECORDS SUMMARY | 2017-10-09 14:12 | External Medical Summary Rpt ---
Author Author [employer], [employer] Organization [employer] Address Unknown Phone Unavailable Results HCV RT-PCR, Quant (Non-Graph) Observa Value Referen Units Interpr Notes Date tion ce etation Range Hepatitis . IU/mL No No Jul 18 C virus informati informati 2017 3:51 RNA on in on in PM [Units/vo source source lume] data data (viral load) in Serum or Plasma by Probe & target amplifica tion method Hepatitis . IU/mL No No Jul 18 C virus informati informati 2017 3:51 RNA on in on in PM [Units/vo source source lume] data data (viral load) in Serum or Plasma by Probe & target amplifica tion method Hepatitis . No No INFCE Jul 18 C virus informati informati Result 2017 3:51 RNA [log on in on in Units: PM units/vol source source log10 ume] data data IU/mLPerf (viral ormed at: load) in BN - Serum or [facility] Plasma by [facility] Probe & [id number] [facility] Prescott nicolasa [place], [place] [id number] Waistband Setter: Jarred Garza MD, Phone: [phone] Test Comment . No No The Jul 18 Informa informa informa quantit 2017 tion: tion in tion in ative 3:51 PM source source range data data of this assay is 15 IU/mL to 100mill ion IU/mL.P erforme d at: BN - [facility] [id number] [address] [facility] [place], [place] [id number]Lab Directo r: Jarred Garza MD, Phone: [phone] Comprehensive metabolic 2000 panel in Serum or Plasma Observa Value Referen Units Interpr Notes Date tion ce etation Range Albumin/G 1.1 - 1.8 No Low No Jul 09 lobulin informati informati 2017 [Mass on in on in 10:20 AM ratio] in source source Serum or data data Plasma Albumin 3.4 - 5.0 gm/dL Low No Jul 09 [Mass/vol informati 2016 ume] in on in 10:20 AM Serum or source Plasma data Alkaline 46 - 116 U/L High No Jul 09 phosphata informati 2016 se on in 10:20 AM [Enzymati source c data activity/ volume] in Serum or Plasma Bilirubin 0.2 - 1.0 mg/dL Normal No Jul 09 .total informati 2016 [Mass/vol on in 10:20 AM ume] in source Serum or data Plasma Urea 7 - 18 mg/dL Low No Jul 09 nitrogen informati 2016 [Mass/vol on in 10:20 AM ume] in source Serum or data Plasma Calcium 8.5 - mg/dL Normal No Jul 09 [Mass/vol 10.1 informati 2016 ume] in on in 10:20 AM Serum or source Plasma data Chloride 98 - 107 mmoL/L Normal No Jul 09 [Moles/vo informati 2016 lume] in on in 10:20 AM Serum or source Plasma data Carbon 21.0 - mmoL/L Normal No Jul 09 dioxide, 32.0 informati 2016 total on in 10:20 AM [Moles/vo source lume] in data Serum or Plasma Creatinin 0.55 - mg/dL Normal No Jul 09 e 1.02 informati 2016 [Mass/vol on in 10:20 AM ume] in source Serum or data Plasma Estimated 59- ML/MIN No REFERENCE Jul 09 informati RANGE: 2017 glomerula on in >60 10:20 AM r source ML/MIN/1. filtratio data 73 SQUARE n rate METERSIf (GF this patient is -A merican, then multiply theresult by 1.210. Globulin 1.3 - 3.2 gm/dL High No Jul 09 [Mass/vol informati 2017 ume] in on in 10:20 AM Serum source data Glucose 74 - 106 mg/dL Normal No Jul 09 [Mass/vol informati 2017 ume] in on in 10:20 AM Serum or source Plasma data Potassium 3.5 - 5.1 mmoL/L Normal No Jul 09 informati 2016 [Moles/vo on in 10:20 AM lume] in source Serum or data Plasma Sodium 136 - 145 mmoL/L Normal No Jul 09 [Moles/vo informati 2017 lume] in on in 10:20 AM Serum or source Plasma data Aspartate 15 - 37 U/L High No Jul 09 alert 2016 aminotran on in 10:20 AM sferase source [Enzymati data c activity/ volume] in Serum or Plasma Alanine 12 - 78 U/L High No Jul 09 aminotran alert 2016 sferase on in 10:20 AM [Enzymati source c data activity/ volume] in Serum or Plasma Protein 6.4 - 8.2 gm/dL Normal No Jul 09 [Mass/vol 2016 ume] in on in 10:20 AM Serum or source Plasma data CBC W Auto Differential panel in Blood Observa Value Referen Units Interpr Notes Date tion ce etation Range Basophils 0 - 0.2 K/MM3 Normal No Jul 092016 [#/volume on in 10:20 AM ] in source Blood by data Automated count Basophils 0.1 - 2.0 % Normal No Jul 092016 leukocyte on in 10:20 AM s in source Blood by data Automated count Eosinophi 0.0 - 0.4 K/mm3 Normal No Jul 09 ls 2016 [#/volume on in 10:20 AM ] in source Blood by data Automated count Eosinophi 0.1 - % Normal No Jul 09 ls/100 12.0 2016 leukocyte on in 10:20 AM s in source Blood by data Automated count Granulocy 1.8 - 7.8 K/mm3 Normal No Jul 09 april 2016 [#/volume on in 10:20 AM ] in source Blood by data Automated count Granulocy 37.0 - % Normal No Jul 09 april/100 80.0 2016 leukocyte on in 10:20 AM s in source Blood by data Automated count Hematocri 37.0 - % Normal No Jul 09 t [Volume 47.0 2016 on in 10:20 AM Fraction] source of Blood data Hemoglobi 12.2 - g/dL Normal No Jul 09 n 16.2 2016 [Mass/vol on in 10:20 AM ume] in source Blood data Lymphocyt 0.7 - 4.5 K/mm3 Normal No Jul 09 es 2016 [#/volume on in 10:20 AM ] in source Unspecifi data ed specimen by Automated count Lymphocyt 10 - 50.0 % Normal No Jul 09 es 2016 [#/volume on in 10:20 AM ] in source Unspecifi data ed specimen by Automated count Erythrocy 27 - 31.2 pg High No Jul 09 te mean 2016 corpuscul on in 10:20 AM ar source hemoglobi data n [Entitic mass] Erythrocy 31.8 - g/dl Normal No Jul 09 te mean 35.4 2016 corpuscul on in 10:20 AM ar source hemoglobi data n concentra tion [Mass/vol ume] by Automated count Erythrocy 82.2 - fl Normal No Jul 09 te mean 97.8 2016 corpuscul on in 10:20 AM ar volume source [Entitic data volume] by Automated count Monocytes 0.1 - 1.0 K/mm3 Normal No Jul 09 inform2016 [#/volume on in 10:20 AM ] in source Blood by data Automated count Monocytes 1.7 - 9.3 % Normal No Jul 09 /100 inform2016 leukocyte on in 10:20 AM s in source Blood by data Automated count Platelet 7.4 - fl Normal No Jul 09 mean 10.4 2016 volume on in 10:20 AM [Entitic source volume] data in Blood by Automated count Platelets 142 - 424 K/mm3 Normal No Jul 092016 [#/volume on in 10:20 AM ] in source Blood data Erythrocy 4.2 - 5.4 M/mm3 Normal No Jul 09 april 2016 [#/volume on in 10:20 AM ] in source Amniotic data fluid Erythrocy 11.5 - % Normal No Jul 09 te 17.5 2016 distribut on in 10:20 AM ion width source [Entitic data volume] by Automated count Leukocyte 4.8 - K/MM3 Normal No Jul 09 s 10.8 2016 [#/volume on in 10:20 AM ] in source Blood data Treponema pallidum IgG Ab [Presence] in Serum by Immunoassay Observa Value Referen Units Interpr Notes Date tion ce etation Range COLLECT JF No No No No May 06 OR informa informa informa informa 2013 tion in tion in tion in tion in 9:40 AM source source source source data data data data ETHNICI C No No No No May 06 TY informa informa informa informa 2013 tion in tion in tion in tion in 9:40 AM source source source source data data data data PURPOSE ROUTINE No No No No May 06 OF informa informa informa informa 2014 EXAM tion in tion in tion in tion in 9:40 AM source source source source data data data data SPECIME BLOOD No No No No May 06 N informa informa informa informa 2014 SOURCE tion in tion in tion in tion in 9:40 AM source source source source data data data data CHART [id number] No No No No May 06 NUMBER informa informa informa informa 2014 tion in tion in tion in tion in 9:40 AM source source source source data data data data Trepone NON-TRESA No No No METHOD May [address] informa informa informa OF 2014 pallidu tion in tion in tion in ANALYSI 9:40 AM m IgG source source source S: Ab data data data EIANORM [Presen AL ce] in RANGE: Serum NON-TRESA by CTIVE\. Immunoa br\This ssay report contain s patient informa tion that must be protect ed in accorda nce with the Health Insuran ce Portabi lity and Account ability Act. Treponema pallidum IgG Ab [Presence] in Serum by Immunoassay Observa Value Referen Units Interpr Notes Date tion ce etation Range COLLECT JF No No No No May 06 OR informa informa informa informa 2014 tion in tion in tion in tion in 9:40 AM source source source source data data data data ETHNICI C No No No No May 06 TY informa informa informa informa 2014 tion in tion in tion in tion in 9:40 AM source source source source data data data data PURPOSE ROUTINE No No No No May 06 OF informa informa informa informa 2014 EXAM tion in tion in tion in tion in 9:40 AM source source source source data data data data SPECIME BLOOD No No No No May 06 N informa informa informa informa 2014 SOURCE tion in tion in tion in tion in 9:40 AM source source source source data data data data CHART [id number] No No No No May 06 NUMBER informa informa informa informa 2014 tion in tion in tion in tion in 9:40 AM source source source source data data data data Trepone Pending No No No \.br\May 06 miguel angel brandt informa is 2014 pallidu tion in tion in tion in report 9:40 AM m IgG source source source contain Ab data data data s [Presen patient ce] in Serum informa by nanette Riley that ssay must be protect ed in accorda nce with the Health Insuran ce Portabi lity and Account ability Act.
--- OUTSIDE RECORDS SUMMARY | 2017-10-09 14:12 | External Medical Summary Rpt ---
[...] BN - Serum or [facility] Plasma by [facility] Probe & [id number] target [facility] Prescott nicolasa [place], [place] [id number] Spinning Frame Tender: Jarred Garza MD, Phone: [phone] Test Comment . No No The Jul 18 Informa informa informa quantit 2017 tion: tion in tion in ative 3:51 PM source source range data data of this assay is 15 IU/mL to 100mill ion IU/mL.P erforme d at: BN - [facility] [id number] [facility] [place], [place] [id number] 61Lab Directo r: Jarred Garza MD, Phone: [phone] Comprehensive metabolic 2000 panel in Serum or [...] source source data data data data CHART [id number] No No No No May 06 NUMBER [...] source source data data data data CHART [id number] No No No No May 06 NUMBER [...]
[2017-10-09 16:20] VITALS: BP 138/90
== END 2017-10-09 16:20 | disposition left against medical advice (07) ==
LOC: UTC 14:02
DX: Z53.21 Procedure and treatment not carried out due to patient leaving prior to being seen by health care provider (principal); J02.9 Acute pharyngitis, unspecified

== ENCOUNTER → 2017-10-10 | Outpatient (CLI) | payer MEDICAID ==
[2017-10-11 08:46] LABS: Rapid Plasma Reagin, Quant Non Reactive (NonRea<1:1)
[2017-10-11 20:36] LABS: Neisseria gonorrhoeae, NAA Negative (Negative)
== END ==
LOC: LAB 11:19
PROVIDERS: Nurse Practitioner Family
DX: S30.816A Abrasion of unspecified external genital organs, female, initial encounter (principal)